=== PATIENT | female | born 1965 | race Caucasian/White ===

== ENCOUNTER → 2020-03-16 | Outpatient (CLI) | payer OTHER ==
[~2020-03-16] MED LIST: ADALAT CC90 MG PO; AMLODIPINE BESY10 MG PO; ASPIR-TRIN325 MG PO; CELEXA 20 MG TA20 M1 PO; FENOFIBRATE160 MG PO; FLOMAX PO; FLOMAX0.4 MG PO; NAPROSYN500 MG PO; NIFEDIPINE ER90 M1 PO; NORCO 5-325 TA1 EACH PO; PERCOCET 7.5-31 EAC1 PO; PROZAC20 M1 PO; ZOCOR20 MG PO
== END ==
LOC: LAB 07:37
PROVIDERS: ATTEND Orthopaedic Surgery Foot and Ankle Surgery
DX: Z01.812 Encounter for preprocedural laboratory examination (principal); Z20.828 Contact with and (suspected) exposure to other viral communicable diseases

== ENCOUNTER 2020-03-19 08:56 | Day surgery (SDC) | payer OTHER ==
[~2020-03-19] VITALS: Ht 162.6 cm; Wt 136.1 kg
[~2020-03-19 08:56] MED LIST changes: -ASPIR-TRIN325 MG PO; -PERCOCET 7.5-31 EAC1 PO
--- NOTE | 2020-03-19 10:59 | EKG ---
[facility] [place] [address] ELECTROCARDIOGRAM REPORT Name: CHIQUIS DURAN Room #: 150-3 [facility]..#: [id number] Admission: 03/19/20 Attend Phys: Wiliam Rojas MD Discharge: Date of : 65 Report #: [id number] THIS REPORT FOR: cc: Vinnie Tom James A. DO Santiago, Patrick MD [facility] ~ THIS REPORT FOR: //name// [facility] Test Date: 2020-03-19 Test Time: 09:39:30 Pat Name: CHIQUIS DURAN Department: Room: 150 3 Gender: F Academic Director: LAUREN : 1965 Requested By: Wiliam Rojas Order Number: [id number] MD: Yury iPnto Measurements Intervals Willis Rate: 82 P: 5 PA: 185 QRS: 48 QRSD: 84 T: 55 QT: 379 QTc: 443 Interpretive Statements Sinus rhythm Compared to ECG 04/24/2008 15:57:33 No significant changes Electronically Signed On 03-19-2020 10:58:59 GLOBAL RECRUITER by Yury Pinto [email or web address] <ELECTRONICALLY SIGNED> By: Yury Pinto MD, FACC 03/19/20 1058 Yury Pinto MD, [facility] /EPI
[2020-03-19] MEDS ORDERED: PERCOCET 7.5-31 EAC1 PO (13:06)
[2020-03-19] MEDS ORDERED: ASPIR-TRIN325 MG PO (13:07)
--- NOTE | 2020-04-02 12:44 | O ---
[facility] [place] [address] OPERATIVE REPORT Name: CHIQUIS DURAN Room #: DEP [facility]#: [id number] Admission: 03/19/20 Attend Phys: Wiliam Rojas MD Discharge: 03/19/20 Date of : 65 Report #: [id number] THIS REPORT FOR: cc: Vinnie Tom,Wiliam Samson MD ~ CC: Vinnie Rojas DATE OF SERVICE: 03/19/2020 PREOPERATIVE DIAGNOSIS: Right talar osteonecrosis. POSTOPERATIVE DIAGNOSIS: Right talar osteonecrosis. PROCEDURE: Right tibiotalar calcaneal arthrodesis with a femoral head allograft. SURGEON: Dr. Wiliam Rojas. JUICE BAR TEAM MEMBER: Candy Hernandez. ANESTHESIA: General. ESTIMATED BLOOD LOSS: Minimal. DRAINS: No drains. TOURNIQUET TIME: 90 minutes. DESCRIPTION OF PROCEDURE: The patient brought to the operating room where she was placed under general anesthesia. Once under adequate general anesthesia, her right lower extremity was prepped and draped in sterile manner. The extremity was elevated, exsanguinated, tourniquet placed 300 mmHg. A lateral incision extending from the distal fibula across the subtalar joint 10 cm in length was made. This was dissected down through the soft tissue directly to the distal fibula, which was then denuded of any periosteum and then subsequently, the distal 3 inches of the fibula where it was excised with a sagittal saw and a rongeur utilizing a 15 blade to free any surrounding soft tissue. The sinus tarsi and the talus was then exposed. There were multiple loose fragments of the talus, which were excised with a rongeur. These were necrotic bony pieces. The remainder of the talar body was then removed transecting the neck and utilizing a sagittal saw to cut the bone into smaller pieces and it was then subsequently completely excised with a large rongeur. On the back table, a femoral head allograft was shaped into a Mahnaz type shape. This was done with a sagittal saw. A sagittal saw was used to resect the [facility] [address] [place] [address] OPERATIVE REPORT Name: CHIQUIS DURAN Room #: DEP SD Reanna.#: [id number] Admission: 03/19/20 Attend Phys: Wiliam Rojas MD Discharge: 03/19/20 Date of : 65 Report #: [id number] of the distal tibia as well as the superior surface of the calcaneus and the subtalar joint. The anterior sinus was then prepared to get bleeding subchondral bone as well. The femoral head allograft was then placed and the guidewire for the xvpyb-kwdz-epnpyexoe nail was then placed through the calcaneus up through the allograft and into the distal tibia. The opening reamer was then utilized and a guidewire was then placed from the calcaneus through the graft and down the shaft of the tibia. We then proceeded with reaming to approximately 13 mm diameter through the tibia and the allograft as well as the calcaneus. Once complete, a 240 mm intramedullary nail was placed from the calcaneus through the graft and into the distal tibia. The posterior locking screws were placed in the distal portion of the nail utilizing fluoroscopy for guidance. This was done through a 2 cm incision in the posterior heel. Excellent fixation was achieved in this manner. We then through the jig for the nail, placed the two locking screws transversely across the tibia through 2 small stab incisions. Excellent fixation was achieved in this manner. The wounds were then irrigated copiously and closed with 2-0 Vicryl in the deep and subcutaneous tissues and teofilo were used for the skin. The wounds were dressed with Xeroform, 4 x 4s, and sterile soft compressive dressing along with a short leg cast was placed. Tourniquet was let down at approximately 90 minutes. Toes were pink and warm with good capillary refill. There were no complications from the procedure. The patient tolerated the procedure well and went to the recovery room without incident. <ELECTRONICALLY SIGNED> By: Wiliam Rojas MD 04/02/20 1244 [id number] Wiliam Rojas MD /nt
== END 2020-03-19 15:00 | disposition home or self-care (01) ==
LOC: OR 08:56 → TBA 09:17 → OR 09:41
PROVIDERS: ATTEND Orthopaedic Surgery Foot and Ankle Surgery
DX: M87.874 Other osteonecrosis, right foot (principal); I10 Essential (primary) hypertension; E78.00 Pure hypercholesterolemia, unspecified; J45.909 Unspecified asthma, uncomplicated; F17.210 Nicotine dependence, cigarettes, uncomplicated; Z98.890 Other specified postprocedural states; Z79.899 Other long term (current) drug therapy; Z79.82 Long term (current) use of aspirin; Z88.8 Allergy status to other drugs, medicaments and biological substances
CPT/HCPCS: 50010; 50101; 50133; 50386; 50635; 50924; 50951; 51412; 53341; 56524; 56527; 57091; 57103; 57181; 5743; 57484; 57860; 58391; 58392; 62110; 62900; 64039; 64042; 70005